=== PATIENT | female | born 1990 | race Caucasian/White ===

== ENCOUNTER → 2017-10-08 11:12 | Outpatient (CLI) | payer BC, SELFPAY ==
[2016-10-24 13:30] VITALS: BP 140/79
[2017-10-08 10:38] VITALS: BP 126/87; BMI 21.8
[2017-10-08 13:14] LABS: hCG Titer Quant., Serum 649 mIU/mL (<9 non-preg)
== END ==
PROVIDERS: Family Provider Family Medicine; PCP Family Medicine; Visit Provider Obstetrics & Gynecology
DX: O20.0 Threatened abortion (principal); Z3A.00 Weeks of gestation of pregnancy not specified
CPT/HCPCS: 36415; 84702

== ENCOUNTER → 2017-10-10 08:15 | Outpatient (CLI) | payer BC, SELFPAY ==
[2016-10-24 13:30] VITALS: BP 140/79
[2017-10-08 10:38] VITALS: BP 126/87; BMI 21.8
[2017-10-10 10:13] LABS: hCG Titer Quant., Serum 134 mIU/mL (<9 non-preg)
== END ==
PROVIDERS: Nurse Practitioner Women's Health; Family Provider Family Medicine; PCP Family Medicine; Visit Provider Obstetrics & Gynecology
DX: O20.0 Threatened abortion (principal); Z3A.00 Weeks of gestation of pregnancy not specified
CPT/HCPCS: 36415; 84702

== ENCOUNTER → 2018-01-28 18:56 | Outpatient (CLI) | payer SELFPAY | PROVIDERS: Visit Provider Physician Assistant Surgical | DX: J02.9 Acute pharyngitis, unspecified (principal) | CPT/HCPCS: 87081 ==

== ENCOUNTER → 2018-08-19 13:52 | Outpatient (CLI) | payer OTHER, SELFPAY ==
[2018-08-19 08:06] VITALS: BMI 22.6
[2018-08-19 14:49] LABS: Mucous, Urine 0 SEEN /hpf (<or=2+)
[2018-08-19 14:51] LABS: Color, Urine Yellow (Yellow); Glucose, Dipstick Normal (Normal); Ketone-Dipstick Negative (Negative); Leukocyte Esterase-Dipstick 500 /ul (Negative); Nitrite-Dipstick Positive (Negative); Occult Blood-Urine 50 /ul (Negative); Protein-Dipstick Negative (Negative); Urine Bilirubin Dipstick Negative (Negative); Urine Clarity Cloudy (Clear); Urine Urobilinogen Normal (Normal)
[2018-08-19 14:57] LABS: Bacteria 3+ /hpf (None Seen); Red Blood Cells-Urine 0-5 SEEN /hpf (0-5); Squamous Epithelial Cells - UA 5-10 SEEN /hpf (5-10); White Blood Cells 25-50 SEEN /hpf (0-5)
--- OUTSIDE RECORDS SUMMARY | 2018-11-21 01:57 | XMS RPT_ITS ---
:1990 Author Organization OHIP Support Name Relationship Address Phone [employer] Unavailable [address] + [place] [address] SWANSON, PAT Unavailable [address] + [place] [address] [employer] Unavailable [address] + [place] [address] SWANSON, PAT Unavailable [address] + [place] [address] [employer] Unavailable [address] + [place] [address] SWANSON, PAT Unavailable [address] + [place] [address] [employer] Unavailable [address] + [place] [address] SWANSON, PAT Unavailable [address] + [place] [address] [employer] Unavailable [address] + [place] [address] SWANSON, PAT Unavailable [address] + [place] [address] [employer] Unavailable [address] + [place] [address] SWANSON, PAT Unavailable [address] + [place] [address] [employer] Unavailable [address] + [place] [address] SWANSON, PAT Unavailable [address] + [place] [address] [employer] Unavailable [address] + [place] [address] SWANSON, PAT Unavailable [address] + [place] [address] Care Team Providers Name Role Phone Kyle Evans Attending Unavailable Ranney, Christopher Referring Unavailable Nathan, Kyle Attending Unavailable Nathan, Kyle Referring Unavailable Marcanthony, Britany Attending Unavailable Ranney, Christopher Referring Unavailable Marcanthony, Britany Attending Unavailable Ranney, Christopher Primary Care Unavailable Marcanthony, Britany Attending Unavailable Ranney, Christopher Primary Care Unavailable Marcanthony, Britany Attending Unavailable Ranney, Christopher Referring Unavailable Nathan, Kyle Attending Unavailable Ranney, Christopher Referring Unavailable Ranney, Christopher Primary Care Unavailable Nathan, Kyle Attending Unavailable Ranney, Christopher Primary Care Unavailable Nathan, Kyle Referring Unavailable PROBLEMS PROBLEMS DATE TYPE CONDITION / CODE ATTENDING STATUS SOURCE 09/05/2018 Unknown R30.0 - Dysuria / Kyle Evans Active [place] R30.0(ICD-10) [facility] Hospital Repository 09/05/2018 Unknown N30.00 - Acute Kyle Evans Active [place] cystitis without Community hematuria / Hospital N30.00(ICD-10) Repository 01/29/2018 Unknown J02.9 - Acute Kyle Evans Active [place] pharyngitis, [facility] unspecified / Hospital J02.9(ICD-10) Repository 10/11/2017 Unknown O20.0 - Marcanthony, Active [place] Threatened Britany [facility] / Hospital O20.0(ICD-10) Repository PROCEDURES PROCEDURES No Procedure Records FoundRESULTS RESULTS URGENT CARE VISIT Observed: 09/10/2018 Status: F Source: [place] REPORT 7:06 AM [facility] REPOSITORY [facility] [address] [place] [address] [address] [place] [address] OFFICE VISIT Date of Service: 08/19/18 MR#: [id number] Acct: [id number] Name: GRIFFIN SWANSON Rep #: [id number] : 1990 Provider: Kyle PEREZ Age/Sex: 27/F Location: [facility] Status: Signed with Addenda ADDENDUM by Rene PEREZ on 09/10/18 at 0706 Addendum entered and electronically signed by CHRIS Moreno 09/10/18 07:06: Pt noted improved UTI symptoms while on macrobid, therefore stopped taking/ did not complete prescription as prescribed, therefore symptoms returned. Patient informed by nursing that she is restart/ complete previous macrobid prescription - as well as add'l macrobid 100mg bid #14 prescribed which she is to start/ complete thereafter - then f/u w/ pcp should symptoms persist/ worsen. HPI Details: GRIFFIN SWANSON, is a 27 F who presents to the office today for Assessment AND Plan 1. 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 Accompanied by: SELF Is patient in pain?: No Allergies No Known Allergies Allergy (Verified 08/19/18 08:06) Medications ibuprofen 100 mg tablet 200 mg PO TID-QID PRN 01/28/18 [History Confirmed 01/28/18] nitrofurantoin monohydrate/macrocrystals 100 mg capsule 1 cap PO Q12H 7 Days #14 cap 08/19/18 [Rx Confirmed 08/19/18] phenazopyridine 100 mg tablet 200 mg PO TID PRN 0 Days #14 tab 08/19/18 [Rx Confirmed 08/19/18] PFSH Surgical History delivery delivered (Acute) Family History Grandmother Cancer Hypertension Grandfather Diabetes Hypertension Social History Smoking Status: Never smoker alcohol intake: never substance use type: does not use caffeine: Yes what type of physical activity do you participate in: none seatbelt use: always do you feel safe at home: Yes additional social history: Gordon- Patient works at [employer] HPI HPI Chief Complaint: DYSURIA Details: GRIFFIN SWANSON, is a 27 F who presents to the office today for complaint of dysuria for the past 5 days. Patient states that she does have a history of frequent UTIs in the past however has not had one in the past 2 years. Patient reports that the dysuria is particularly painful in the morning after not drinking much overnight and then seems to improve with aggressive hydration during the day. She denies any hematuria or pelvic pain. She has had no fever, chills, sweats. No nausea, vomiting, diarrhea. No other associated symptoms or alleviating/aggravating factors. ROS Const Constitutional: No body ache, chills or fever(s) Resp Respiratory: No shortness of breath Cardio Cardiology: No lightheadedness, palpitations or irregular heart rhythm Gastro GI: No abdominal pain Genitourinary-Female: Positive for burning urination, painful urination and urinary frequency; no pelvic pain, painful intercourse or blood in urine Neuro Neurology: No confusion or behavioral changes Psych Psychiatric: No confusion, No behavioral changes Exam Const General: cooperative, healthy appearing Resp Effort AND Inspection: normal respiratory effort Auscultation: Bilateral: Clear to Auscultation Cardio Rate: regular rate Rhythm: regular rhythm GI Auscultation: normal bowel sounds General: No CVA tenderness Psych Appearance: grossly normal Mental Status: mental status grossly normal Results [facility] Office Urine Color Dk Yellow Last Edit by Odilia Tong on 08/19/18 08:09 Assessment AND Plan 1. Acute cystitis without hematuria N30.00 Status Acute Plan Macrobid and Pyridium as prescribed today. Encouraged to get plenty of rest, drink lots of clear liquids, and use Tylenol or Ibuprofen (unless contraindicated) for fever and comfort. Patient also educated on other symptomatic management techniques. To be seen in 7-10 days if no improvement; sooner if worsening of symptoms. Patient advised of potential red flags and when appropriate to report to the ED. Patient verbalized understanding and agreement with all the above. Plan Detail Other Orders Orders: Other Medications New: nitrofurantoin monohyd/m-cryst 100 mg administer with1 cap PO Q12H 7 days 14 caps 0RF a meal/food; swallow whole; do not open, crush, dissolv e , or chew Discontinued: azithromycin Discontinued Reason: Pt no ltake 500 mg today (day 1), then 250 mg for 4 onger taking days (days 2- 5) PO 6 tabs 0RF Coding Level of Care Code Off vis,est,level 3 Diagnoses Acute cystitis without hematuria N30.00 Urinary tract infection type: acute cystitis Hematuria presence: without hematuria 08/19/18 0809 <Electronically signed by Kyle PEREZ> Date Kyle PEREZ Cosigner Signature: Date (if applicable) CC: URINALYSIS, COMPLETE Collected: 08/19/2018 Status: F Source: [place] 8:00 AM [facility] REPOSITORY Order Comment: How was Urine Obtained? CLEAN CATCH TYPE CODE TESTS RESULT OUT OF RANGE REFERENCE UNITS LAB L400.3000 Yellow COLOR Normal Yellow LAB L400.3050 Clear Normal CLARITY Cloudy LAB L400.3200 Normal mg/dl Normal GLUCOSE, UR Normal LAB L400.3300 Negative mg/dL Normal BILIRUBIN URINE Negative LAB L400.3400 Negative mg/dl Normal KETONE UR Negative LAB L400.3465 1.002-1.030 Normal SP.GR. DIPSTX 1.020 LAB L400.3550 5.0 - 8.0 pH UR Normal 6.0 LAB L400.3600 Negative mg/dl PROT Normal DIPSTX Negative LAB L400.3700 Normal mg/dl Normal UROBILI Normal LAB L400.3750 Negative High NITRITE UR Positive LAB L400.3780 Negative /ul High 50 OCCULT BLOOD-UR LAB L400.3800 Negative /ul High LEUK ESTERASE 500 LAB L400.4050 0-5 /hpf WBC Normal 25-50 SEEN LAB L400.4100 0-5 /hpf Normal RBC-UA 0-5 SEEN LAB L400.4150 5-10 /hpf SQUAM Normal EPI 5-10 SEEN LAB L400.4300 None Seen /hpf 3+ Normal BACTERIA LAB L400.4350 <or=2+ /hpf 0 Normal MUCUS, URINE SEEN Performed By: #### L400.0001 #### [facility] [address] [place], [address] Observed: 08/19/2018 Status: F Source: [place] CULTURE, URINE 8:00 AM [facility] REPOSITORY Urine Culture ORGANISM 1: Presumptive E. coli [place] Count >100,000 Presumptive E. coli: REACTION Amoxacillin/Clavulanic Acid $ 4 S Ampicillin $ >=32 R Ampicillin/Sulbactam $ 16 I Cefazolin $ <=4 S Cefepime $ <=1 S Ceftriaxone $ <=1 S Ciprofloxacin $ <=0.25 S ESBL - Ertapenim $$$ <=0.5 S Gentamicin $ <=1 S Imipenem *NF <=0.25 S Levofloxacin $ <=0.12 S Nitrofurantoin $ <=16 S Piperacillin/Tazobactam $$ <=4 S Tobramycin $ <=1 S Trimethoprim/Sulfametho $ >=320 R (NF) indicates non-formulary drug at [facility]. Approval by Infectious Disease Specialist required before non-formulary drugs may be ordered and/or dispensed. Performed By: #### M100.0650 #### [facility] [address] [place], [address] Observed: 01/28/2018 Status: F Source: [place] CULTURE, R/O STREP A 6:58 PM [facility] REPOSITORY JUDD Culture No Group A Beta Streptococcus isolated. * This cultures intended use is to screen for Beta Streptococcus A only. All other pathogens and potential pathogens will not be screened for or reported. If a complete workup of all potential pathogens is indicated an order for a routine throat culture is required. Performed By: #### M100.010 #### [facility] [address] [place], [address] URGENT CARE VISIT Observed: 01/28/2018 Status: F Source: [place] REPORT 8:40 AM [facility] REPOSITORY [address] [place] [address] OFFICE VISIT Date of Service: 01/28/18 MR#: [id number] Acct: [id number] Name: GRIFFIN SWANSON Rep #: [id number] : 1990 Provider: Kyle PEREZ Age/Sex: 27/F Location: [facility] Status: Signed Intake Vital Signs01/28/18 Height 5 ft 5 in 01/28/18 Weight: 136 lb 01/28/18 Body Mass Index (BMI) 22.6 01/28/18 Blood Pressure 108/72 Intake Visit Reasons: SORE THROAT, GLANDS SWOLLEN Allergies No Known Allergies Allergy (Verified 01/28/18 08:06) Medications azithromycin 250 mg tablet See Label Instructions PO .COMPLEX #6 tab 01/28/18 [Rx Confirmed 01/28/18] ibuprofen 100 mg tablet 200 mg PO TID-QID PRN 01/28/18 [History Confirmed 01/28/18] PFSH Surgical History delivery delivered (Acute) Family History Grandmother Cancer Hypertension Grandfather Diabetes Hypertension Social History Smoking Status: Never smoker alcohol intake: never substance use type: does not use caffeine: Yes what type of physical activity do you participate in: none seatbelt use: always do you feel safe at home: Yes additional social history: Gordon- Patient works at [employer] HPI HPI Details: GRIFFIN SWANSON, is a 27 F who presents to the office today for sore throat, swollen lymph nodes and white spots around her tonsils for the past 3 days. She states that the issue has worsened during this time despite the use of ibuprofen for the pain. She denies fever, chills, sweats. No nausea, vomiting, diarrhea. No other associated symptoms or alleviating/aggravating factors ROS Const Constitutional: No fever(s), anorexia, chills, headache(s) or abnormal sleep pattern ENT ENT: Positive for post nasal drip, sore throat, nasal congestion and nasal discharge; no ear pain or headache(s) Resp Respiratory: No shortness of breath Cardio Cardiology: No irregular heart rhythm or palpitations Gastro GI: No nausea/dyspepsia Neuro Neurology: No headache(s) or behavioral changes Psych Psychiatric: No behavioral changes, No abnormal sleep pattern Exam Const General: cooperative, healthy appearing HENSC Head: normal to inspection Ears: hearing grossly normal bilaterally, TM's normal bilaterally, EAC's normal Nose: external nose normal, nasal discharge clear Mouth: oral mucosae normal Throat: abnormal tonsil bilaterally Resp Effort AND Inspection: normal respiratory effort Auscultation: Bilateral: Clear to Auscultation Cardio Palpation: normal PMI Rate: regular rate Rhythm: regular rhythm Neuro General: CN's II-XI intact bilaterally, alert Psych Appearance: grossly normal Mental Status: mental status grossly normal Results BMS[facility]APID[facility]RE[facility] Office Rapid Strep A Negative Last Edit by Odilia Tong on 01/28/18 08:21 Assessment AND Plan Problems 1. Acute pharyngitis, unspecified etiology J02.9 Status Acute Plan Azithromycin as prescribed today. Encouraged to get plenty of rest, drink lots of clear liquids, and use Tylenol or Ibuprofen (unless contraindicated) for fever and comfort. Patient also educated on other symptomatic management techniques. To be seen in 7-10 days if no improvement; sooner if worsening of symptoms. Patient advised of potential red flags when appropriate report to the ED. Patient verbalized understanding of all the above. This note was generated with [employer] dictation software. It may contain incorrect words, spelling, and punctuation that were not noted in checking the note before signing. Orders Orders: Medications New: azithromycin take 500 mg today (day 1), then 250 mg for 4 days (days 2-5) CHRIS Self O Discontinued: oxycodone Discontinued Reason: Pt 5 - 10 mg PO Q4H PRN PRN Mod-Severe P Odilia Tong no longer taking ain (-06/11) docusate sodium Discontinued [id number] mg PO BID PRN Constipation Odilia Tong : Pt no longer taking Coding Level of Care Code Off vis,est,level 3 Diagnoses Acute pharyngitis, unspecified etiology J02.9 Pharyngitis/tonsillitis etiology: unspecified etiology 01/28/18 0840 <Electronically signed by Kyle PEREZ> Date Kyle PEREZ Cosigner Signature: Date (if applicable) CC: HCG TITER QUANT., Collected: 10/10/2017 Status: F Source: [place] 8:18 AM [facility] REPOSITORY TYPE CODE TESTS RESULT OUT OF RANGE REFERENCE UNITS LAB L700.8000 <9 non-preg mIU/mL High HCG 134 QUANT. Performed By: #### L700.8000 #### [facility] [address] 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: No Is patient in pain?: No Allergies No Known Allergies Allergy (Verified 10/08/17 10:38) Medications Docusate Sodium [Colace] 100 mg PO BID PRN #30 cap 10/22/16 [Rx] Naproxen [Naprosyn] 250 - 500 mg PO TID PRN #30 tab 10/22/16 [Rx] Oxycodone [Oxyir] 5 - 10 mg PO Q4H PRN PRN #30 tab 10/22/16 [Rx] Vits [Prenatabs FA ] 1 tab PO DAILY 10/22/16 [History Confirmed 10/08/17] Is last menstrual period known: Yes Last Menstral Period: 08/19/17 Post menopausal: No Patient : Yes : No PFSH Surgical History delivery delivered (Acute) Family History Grandmother Cancer Hypertension Grandfather Diabetes Hypertension Social History Smoking Status: Never smoker alcohol intake: never substance use type: does not use caffeine: Yes what type of physical activity do you participate in: none seatbelt use: always do you feel safe at home: Yes additional social history: Gordon- Patient works at [employer] HPI Early OB Bleeding: Details: GRIFFIN SWANSON is a 26 year old who presents for bleeding in early , first joselyn twas positive two weeks ago but bleeding started and is getting heavier. she co mild cramping. Female Reproductive History Last Menstral Period: 08/19/17 Questions: Metorrhagia: No, Sexually active: Yes Pregancy History 2 Elective abortions Hx Para 1 Spontaneous abortions Past Pregnancies Del. DatName [place]/WeeksOutcome Route [facility] LgAnesthesDel LocaProviderFOB e ht en ia tn Unknown 2016 Mimi live birC-sectio Benekos th - fuln l term ROS Const Constitutional: Denies poor appetite, headache(s), fever(s), increased appetite, weight gain, weight loss or fatigue : Reports as per HPI; denies urinary urgency, vaginal discharge, urinary frequency, vaginal itching, vaginal odor, vaginal dryness, urinary incontinence, urinary hesitancy, difficulty urinating or painful urination Exam Const General: cooperative, healthy appearing, comfortable, no acute distress, well developed Nutritional Appearance: average body habitus Orientation: alert General: bladder normal to palpation External Female Exam: normal external appearance, normal appearance of the urethra Urethra: normal appearance of the urethra, normal palpation Speculum Exam - Vagina: normal appearance of the vagina, vaginal bleeding Speculum Exam - Cervix: normal appearance of the cervix, nontender Bimanual Exam- Vagina AND Uterus: bladder normal to palpation, No cervical tenderness, normal bimanual exam, uterine size normal, uterine shape normal, uterine mobility normal, uterine consistency normal, normal cervical palpation, uterus non-tender Bimanual Exam- Adnexa, other: normal adnexae, adnexae mobile, no adnexal masses, pelvic support normal Pelvic Support: normal OB/External AND Speculum: vaginal bleeding Speculum Exam: vaginal bleeding Assessment AND Plan Problems 1. Threatened O20.0 check serial hcgs Plan recommend checking serial hcgs. rh positive. discussed possible early miscarriage. Orders Orders: Coding Level of Care Code Off vis,new,level 3 Diagnoses Threatened O20.0 10/09/17 0619 <Electronically signed by Britany Butts MD> Date Britany Butts MD Cosigner Signature: Date (if applicable) CC: HCG TITER QUANT., Collected: 10/08/2017 Status: F Source: [place] SER[place] 11:20 AM [facility] REPOSITORY Order Comment: Comments: draw now and repeat in 48 hours Comments: draw now and repeat in 48 hours TYPE CODE TESTS RESULT OUT OF RANGE REFERENCE UNITS LAB L700.8000 <9 non-preg mIU/mL High HCG 649 QUANT. Performed By: #### L700.8000 #### [facility] [address] [place], [address] ALLERGIES ALLERGIES DATE TYPE / CODE NAME / CODE REACTION SEVERITY SOURCE 08/19/2018 Drug No Known Unknown [facility] Allergy/4160 Allergies/F00 [facility] 10667(SNOMED 5689867(RXNOR Repository CT) M) ENCOUNTERS ENCOUNTERS ADMIT/DISCHARGE ACCOUNT ADMITTING ENCOUNTER LOCATION SOURCE NUMBER CLASS 08/19/2018 [id number] Ambulatory [place] 1 [facility] ing:LABSPEC Repository 08/19/2018/ [id number] Ambulatory BMS[facility]:B [place] 8 4 [facility] Repository 01/28/2018 [id number] [facility] ing:LABSPEC Repository 01/28/2018/ [id number] Ambulatory BMSBuilding:B [place] 8 5 [facility] Repository 10/14/2017 [id number] Ambulatory BMSBuilding:B [place] 1 [facility] Repository 10/10/2017 [id number] Ambulatory [place] 2 [facility] ing:LAB Repository 10/08/2017 [id number] Ambulatory [place] 4 [facility] ing:POLAB3 Repository 10/08/2017/ [id number] Ambulatory BMSBuilding:B [place] 8 7 [place] Repository PAYERS PAYERS ENCOUNTER GUARANTOR PAYER SUBSCRIBER SOURCE 08/19/2018 GRIFFIN E Primary GRIFFIN E [place] [address] Insurance:COMMERCIAL JONESDOB: [facility] [place]: [id number] [id number] Repository [address]Vbq: (330) Date:0437-78-89[phone] () [address] [place], [place] [address]MARGARET CONNOR [address]EB: 08/19/2018 Secondary NOT GIVENUNK [place] Insurance:SELF PAY [facility] Hospital Number: Effective Repository Date:2018-08-19 08/19/2018 GRIFFIN E Primary GRIFFIN E [place] [address] Insurance:ALLIED JONESDOB: [facility] [id number] [facility] Repository [address]Wxs: (330) Number: [phone] [id number] Date:8948-25-[address] [address]EH: 08/19/2018 Secondary NOT GIVENUNK [place] Insurance:SELF PAY [facility] Number: Effective Repository Date:2018-08-19 01/28/2018 GRIFFIN SWANSON265 Primary Insurance:SELF NOT GIVENUNK [place] [address] PAY [place] Number: Effective Hospital [address]Bmn: Date:2018-01-28 Repository [phone] (HP) 01/28/2018 GRIFFIN SWANSON265 Primary Insurance:SELF NOT GIVENUNK [place] [address] PA[place] Number: Effective Hospital [address]Gbi: Date:2018-01-28 Repository [phone] 0-3 (HP) 10/14/2017 Griffin Guaman Primary Griffin JonesDOB: [place] [address] Insurance:ANTHEMPolicy [id number] [place] Number: [facility] [address]Srp: [id number] Repository [phone] Date:2469-29-97FB [address] () [id number], [place] [address]EO: 10/14/2017 Secondary NOT GIVENUNK [place] Insurance:SELF PAY [facility] Number: Effective Repository Date:2017-09-25 10/10/2017 Griffin Guaman Primary Gordon Spencer [place] [address] Insurance:ANTHEMPolicy [facility] [place] Number: [facility] [address]Njx: [id number] Repository [phone] Date:8369-60-93VX [address] () [id number], [place] [address]TH: 10/10/2017 Secondary NOT GIVENUNK [place] Insurance:SELF PAY [facility] Number: Effective Repository Date:2017-10-10 10/08/2017 Griffin Guaman Primary Gordon Spencer [place] [address] Insurance:ANTHEMPolicy [facility] [place] [place] Number: Hospital [address]Tqo: [id number] Repository [phone] Date:[id number] [address] () [id number], [place] [address]FJ: 10/08/2017 Secondary NOT GIVENUNK [place] Insurance:SELF PAY [facility] Number: Effective Repository Date:2017-10-08 10/08/2017 Griffin Swanson265 Primary Griffin SwansonDOB: [place] [address] Insurance:ANTHEMPolicy [id number] [place] Number: Hospital [address]Aze: [id number] Repository [phone] Date:5145-28-48KI [address] () [id number], [place] [address]JL: 10/08/2017 Secondary NOT GIVENUNK [place] Insurance:SELF PAY [facility] Number: Effective Repository Date:2017-10-08
== END ==
PROVIDERS: Referring Provider Physician Assistant Surgical; Visit Provider Physician Assistant Surgical
DX: R30.0 Dysuria (principal)
CPT/HCPCS: 81001; 87086; 87088; 87186

== ENCOUNTER → 2018-11-05 09:17 | Outpatient (CLI) | payer BC, SELFPAY ==
[2018-11-05 09:05] VITALS: BMI 22.6
[2018-11-05 09:44] LABS: Absolute Lymphocyte Count 2.37 X10^3/ul (0.83-4.51); Absolute Neutrophil Count 5.5 X10^3/uL (2.0-7.7); Basophil# 0.02 X10^3/uL; Basophil% 0.2 % (0-1); Eosinophils% 1.2 % (0-5); Hematocrit 41.8 % (37-47); Lymphocyte # 2.37 X10^3/ul (4.0); Lymphocyte % 27.5 % (19-41); Mean Corp Hgb Conc 33.5 g/gl (32-36); Mean Corpuscular Hgb 29.4 pg (27.0-32.0); Mean Corpuscular Volume 87.8 fL (81-99); Mean Platelet Vol. 8.9 fl (6.2-12.0); Monocyte# 0.58 X10^3/uL; Monocyte% 6.7 % (0-10); Neutrophil # 5.53 X10^3/uL (2.7-7.7); Neutrophil % 64.1 % (47-70); POSITIVE COUNT NO; POSITIVE DIFFERENTIAL NO; POSITIVE MORPHOLOGY NO; Platelet Count 207 K/mm3 (150-450); RBC Distribution Width CV 12.3 % (11.6-14.6); RBC Distribution Width SD 39.4 fl (35.1-43.9); Red Blood Count 4.76 M/mm3 (4.2-5.4); White Blood Count 8.6 K/mm3 (4.4-11.0)
[2018-11-05 11:23] LABS: HIV - WCH Non-Reactive (Nonreactive); Rubella IgG 50.9 IU/mL
[2018-11-05 18:52] LABS: Chlamydia Trachomatis by PCR Negative (Negative); Neisserai gonorrhoeae by PCR Negative (Negative); Probe Check PASS; Sample Adequacy Control PASS; Specimen Processing Control PASS
[2018-11-06 10:58] LABS: HEPATITIS B SURFACE AG Negative (Negative)
[2018-11-07 01:31] LABS: Rapid Plasmin Reagin (RPR) NONREACTIVE (NONREACTIVE)
[2018-11-10 12:18] LABS: HPV Reflexed? NOT INDICATED
== END ==
PROVIDERS: Family Provider Family Medicine; PCP Family Medicine; Referring Provider Obstetrics & Gynecology; Visit Provider Obstetrics & Gynecology
DX: Z34.90 Encounter for supervision of normal pregnancy, unspecified, unspecified trimester (principal); Z12.4 Encounter for screening for malignant neoplasm of cervix
CPT/HCPCS: 36415; 85025; 86592; 86703; 86762; 86850; 86900; 87086; 87088; 87340; 87491; 87591; 87624; 88175; G0145

== ENCOUNTER → 2019-02-25 07:44 | Outpatient (CLI) | payer BC, SELFPAY ==
[2019-01-30 16:43] VITALS: BMI 22.6
--- NOTE | 2019-02-25 07:46 | US_ITS ---
HISTORY: growth ADDITIONAL HISTORY: Two-vessel cord COMPARISON: None TECHNIQUE: Limited obstetric sonography performed with transabdominal approach, grayscale and color Doppler imaging. FINDINGS: NUMBER: 1 HEART RATE: BPM PRESENTATION: Cephalic PLACENTA: Posterior. CERVIX: Unremarkable, 3.7 cm AMNIOTIC FLUID: Normal with PEDRO 14.4 cm and maximum vertical pocket 6.6 cm. BIOMETRY: BPD: 7.3 cm, 29 weeks 3 days HC: 26.2 cm, 29 weeks 1 day AC:25.4 cm 25.4, 29 weeks 5 days FL: 5.7 cm, 29 weeks 6 days AUA: 29 weeks 4 days SILVANA: 05/09/2019 EFW: 1426 g, 86th percentile Anatomy Limited visualized anatomy appears unremarkable, dedicated evaluation not performed at this time. US/OB Limited With Biometrics IMPRESSION: Single, live intrauterine gestation, as detailed. at 0629 Reported and signed by: Cecilia Munoz MD Electronically Signed: Cecilia Munoz MD at 6:28 EDT Tel , Service support ,
== END ==
PROVIDERS: Family Provider Family Medicine; PCP Family Medicine; Referring Provider Obstetrics & Gynecology; Visit Provider Obstetrics & Gynecology
DX: O09.899 Supervision of other high risk pregnancies, unspecified trimester (principal); O44.42 Low lying placenta NOS or without hemorrhage, second trimester; Z3A.29 29 weeks gestation of pregnancy
CPT/HCPCS: 76816

== ENCOUNTER → 2019-02-27 15:24 | Outpatient (CLI) | payer BC, SELFPAY ==
[2019-02-27 15:07] VITALS: BMI 22.6
[2019-02-27 16:13] LABS: Absolute Lymphocyte Count 2.35 X10^3/ul (0.83-4.51); Absolute Neutrophil Count 8.9 X10^3/uL (2.0-7.7); Basophil# 0.03 X10^3/uL; Basophil% 0.2 % (0-1); Eosinophil# 0.07 X10^3/uL; Eosinophils% 0.6 % (0-5); Hematocrit 33.8 % (37-47); Hemoglobin 11.3 g/dl (12.0-15.0); Lymphocyte # 2.35 X10^3/ul (4.0); Lymphocyte % 18.8 % (19-41); Mean Corp Hgb Conc 33.4 g/gl (32-36); Mean Corpuscular Hgb 29.8 pg (27.0-32.0); Mean Corpuscular Volume 89.2 fL (81-99); Mean Platelet Vol. 8.9 fl (6.2-12.0); Monocyte# 0.96 X10^3/uL; Monocyte% 7.7 % (0-10); Neutrophil # 8.89 X10^3/uL (2.7-7.7); Neutrophil % 70.9 % (47-70); Platelet Count 224 K/mm3 (150-450); RBC Distribution Width CV 12.9 % (11.6-14.6); RBC Distribution Width SD 41.3 fl (35.1-43.9); Red Blood Count 3.79 M/mm3 (4.2-5.4); White Blood Count 12.5 K/mm3 (4.4-11.0)
[2019-02-27 16:20] LABS: POSITIVE COUNT NO; POSITIVE DIFFERENTIAL NO; POSITIVE MORPHOLOGY NO
[2019-02-27 16:31] LABS: Glucose Challenge Gest 1H 50g 98 mg/dL (70-140)
== END ==
PROVIDERS: Family Provider Family Medicine; PCP Family Medicine; Referring Provider Nurse Practitioner Women's Health; Visit Provider Nurse Practitioner Women's Health
DX: Z34.80 Encounter for supervision of other normal pregnancy, unspecified trimester (principal)
CPT/HCPCS: 36415; 82950; 85025

== ENCOUNTER → 2019-04-02 07:47 | Outpatient (CLI) | payer BC, SELFPAY ==
[2019-03-24 08:05] VITALS: BMI 22.6
[2019-03-31 08:38] VITALS: BMI 22.6
--- NOTE | 2019-04-02 08:07 | US_ITS ---
STUDY: SECOND AND THIRD TRIMESTER OBSTETRICAL ULTRASOUND REASON FOR EXAM: Female, 28 years old. well being. LMP: 02/25/2019 TECHNIQUE: Transabdominal and Transvaginal TECHNICAL QUALITY: Adequate. PRIOR ULTRASOUND: 02/25/2019. FINDINGS: There is a single intrauterine fetus. The fetus is in a cephalic presentation. There is demonstrated cardiac activity with a heart rate of 143 bpm. There is a normal amniotic fluid volume. The largest amniotic fluid pocket measures 6.4 cm. The amniotic fluid index (PEDRO) is 15 cm. The placenta is posterior in location and is not low lying. There are Grade 2 placental changes. The cervix measures 3.8 in length. The bilateral adnexal regions are normal. BIOMETRY: BPD: 8.7: 35 weeks, 0 days HC: 31.2: 35 weeks, 0 days AC: 31.5: 35 weeks, 4 days FL: 6.9: 35 weeks, 3 days CI: FL/BPD: FL/HC: FL/AC: HC/AC: age by current US: 35 weeks, 2 days. SILVANA by current US: 05/05/2019. Estimated weight: 2653 grams, +/- 387 grams, 92 %. age by prior US: 34 weeks, 2 days. SILVANA by prior US: 05/09/2019. Age by LMP: 33 weeks, 3 days. SILVANA by LMP: 05/18/2019. US/OB Limited With Biometrics IMPRESSION: Single live fetus in a vertex presentation. survey not performed on this exam. Again noted is a two-vessel umbilical cord. Placenta is grade 2 and is not low-lying. Cervix is closed. age by current US: 35 weeks, 2 days. SILVANA by current US: 05/05/2019. Estimated weight: 2653 grams, +/- 387 grams, 92 %. Electronically Signed: Jere Aguilar MD at 17:20 EDT , Service support ,
== END ==
PROVIDERS: Family Provider Family Medicine; PCP Family Medicine; Referring Provider Obstetrics & Gynecology; Visit Provider Obstetrics & Gynecology
DX: O09.893 Supervision of other high risk pregnancies, third trimester (principal); Z3A.35 35 weeks gestation of pregnancy
CPT/HCPCS: 76816

== ENCOUNTER → 2019-04-21 16:30 | Outpatient (CLI) | payer BC, SELFPAY ==
[2019-04-21 08:22] VITALS: BMI 22.6
== END ==
PROVIDERS: Family Provider Family Medicine; PCP Family Medicine; Referring Provider Obstetrics & Gynecology; Visit Provider Obstetrics & Gynecology
DX: Z34.93 Encounter for supervision of normal pregnancy, unspecified, third trimester (principal)
CPT/HCPCS: 87081

== ENCOUNTER → 2019-04-30 07:59 | Outpatient (CLI) | payer BC, SELFPAY ==
[2019-03-24 08:05] VITALS: BMI 22.6
[2019-04-28 08:03] VITALS: BMI 22.6
--- NOTE | 2019-04-30 08:07 | US_ITS ---
STUDY: SECOND AND THIRD TRIMESTER OBSTETRICAL ULTRASOUND REASON FOR EXAM: Female, 28 years old. growth LMP: TECHNIQUE: Transabdominal TECHNICAL QUALITY: Adequate. PRIOR ULTRASOUND: April 02, 2019 FINDINGS: There is a single intrauterine fetus. The fetus is in a cephalic presentation. There is demonstrated cardiac activity with a heart rate of 136 bpm. There is a normal amniotic fluid volume. The largest amniotic fluid pocket measures 5.2 cm. The amniotic fluid index (PEDRO) is 16.9 cm. The placenta is posterior There are Grade 2 placental changes. The cervix is not visualized nor are the adnexa BIOMETRY: BPD: 9.6 cm: 39 weeks, 2 days HC: 34.2 cm: 39 weeks, 4 days AC: 85.3 cm: 39 weeks, 2 days FL: 7.7 cm: 39 weeks, 2 days CI: 0.84 FL/BPD: 0.8 FL/HC: FL/AC: 0.22 HC/AC: 0.97 age by current US: 39 weeks, 3 days. SILVANA by current US: May 04, 2019 . Estimated weight: 3724 grams, +/- 544 grams, 94 %. age by prior US: 39 weeks, 2 days. SILVANA by prior US: May 05, 2019. Age by LMP: 37 weeks, 3 days. SILVANA by LMP: May 18, 2019. ANATOMY: Not studied at this time US/OB Limited With Biometrics IMPRESSION: Viable intrauterine gestation approximately 39-40 weeks gestational age. Electronically Signed: Tariq Chu MD at 16:50 EDT , Service support ,
== END ==
PROVIDERS: Family Provider Family Medicine; PCP Family Medicine; Referring Provider Obstetrics & Gynecology; Visit Provider Obstetrics & Gynecology
DX: O09.90 Supervision of high risk pregnancy, unspecified, unspecified trimester (principal)
CPT/HCPCS: 76816

== ENCOUNTER 2019-05-14 08:50 | Outpatient (CLI) | payer BC, SELFPAY ==
[2019-05-12 08:06] VITALS: BMI 22.6
[2019-05-14 09:12] VITALS: BMI 28.3
--- NOTE | 2019-05-24 00:02 | OB.TRI.PN_ITS ---
Progress Notes Date of Service: 05/14/19 Progress Note: Patient presented for contractions. No significant cervical change. Reassuring status FHT: 130 Moderate variability reactive no decelerations category I tracing [place]: Irregular contractions Assessment and plan false labor DC home labor precautions planning if spontaneous labor otherwise repeat low transverse reactive nst Multi Select Codes - Urinary/Genital Urinary/Genital CPT Codes: 62651-43 non-stress test Interp
== END 2019-05-14 10:05 | disposition home or self-care (01) ==
LOC: WPOUT 08:53 → WP 08:53
PROVIDERS: Family Provider Family Medicine; PCP Family Medicine; Referring Provider Obstetrics & Gynecology; Visit Provider Obstetrics & Gynecology
DX: O47.9 False labor, unspecified (principal); O34.211 Maternal care for low transverse scar from previous cesarean delivery; Z3A.00 Weeks of gestation of pregnancy not specified
CPT/HCPCS: 59025; 59050; 99218; G0378

== ENCOUNTER 2019-05-15 10:00 | Inpatient (IN) | payer BC, SELFPAY ==
[2019-05-05 08:28] VITALS: BMI 22.6
[2019-05-14 09:12] VITALS: BMI 28.3
[2019-05-15] VITALS (19 sets, daily range): BP systolic 105–131; BP diastolic 49–77; PULSE 82–107; RESP 16–18; TEMP 36–36.7; O2SAT 95–99; BMI 28.1
[2019-05-15] MEDS: Lactated Ringers 1,000 ML 999 ML IV (10:10)
[2019-05-15 10:40] LABS: Absolute Neutrophil Count 9.3 X10^3/uL (2.0-7.7); Basophil# 0.07 X10^3/uL; Basophil% 0.5 % (0-1); Eosinophil# 0.09 X10^3/uL; Eosinophils% 0.7 % (0-5); Hematocrit 38.5 % (37-47); Hemoglobin 12.4 g/dL (12.0-15.0); Lymphocyte % 21.3 % (19-41); Mean Corp Hgb Conc 32.2 g/dL (32-36); Mean Corpuscular Volume 86.9 fL (81-99); Mean Platelet Vol. 9.7 fl (6.2-12.0); Monocyte# 0.92 X10^3/uL; Monocyte% 6.8 % (0-10); NRBC Flagged by Analyzer 0 % (0-5); Neutrophil # 9.25 X10^3/uL (2.7-7.7); Neutrophil % 68.1 % (47-70); Platelet Count 236 K/mm3 (150-450); RBC Distribution Width CV 13.6 % (11.6-14.6); RBC Distribution Width SD 43.2 fl (35.1-43.9); Red Blood Count 4.43 M/mm3 (4.2-5.4); White Blood Count 13.6 K/mm3 (4.4-11.0)
[2019-05-15] MEDS: Lactated Ringers 1,000 ML 150 ML IV (11:13)
[2019-05-15] MEDS: Sodium Citrate/Citric Acid 30 ML UDC PO (12:24)
[2019-05-15] MEDS: Cefazolin 2 GM in 0.9% Normal Saline 100 ML IV (12:31)
[2019-05-15] MEDS: Oxytocin 30 units/NS 500 ml 30 UNITS/500 ML IV.SOLN 167 UNITS IV (13:35)
--- NOTE | 2019-05-15 15:24 | NURSING ---
Printed Ekg strip. Dr Schwartz called to evaluate strip. Dr Schwartz to room viewed strip. Monitor strip within normal limits Normal sinus rhythm noted.
--- NOTE | 2019-05-15 15:27 | NURSING ---
pericare done and binder on.
[2019-05-15] MEDS: Lactated Ringers 1,000 ML 100 ML IV (16:49)
--- NOTE | 2019-05-15 18:00 | NURSING ---
Mother had emesis after iv came out, iv was restarted and zofran given. Initialized on 05/15/19 18:37 - END OF NOTE
[2019-05-15] MEDS: Ondansetron 4 MG/2 ML Vial IV (18:03)
[2019-05-15] MEDS: 0.9% Saline Lock 10 ML Syringe IV ×2 (18:03→19:49)
--- NOTE | 2019-05-15 18:10 | NURSING ---
IV bumped as mother was moving in bed and came out
[2019-05-15] MEDS: Ketorolac 30 MG/ML Syringe IV (19:48)
--- NOTE | 2019-05-15 20:18 | HP.PCM_ITS ---
- Problem List (1) History of delivery Status: Acute Comment: previous for breech, plan TOLAC 79% likelihood of success. uptodate education given. consent signed (2) Status: Acute Qualifiers: Comment: PRR SILVANA 05/18/19 girl PC Mimi SPouse Gordon (3) Supervision of high risk , antepartum Status: Acute Comment: Declined NTD, genetic, carrier screening. anatomy scan reviewed. (4) Two vessel umbilical cord, antepartum Status: Acute Comment: recommend serial growth US [id number] after 28 weeks. 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: No Is patient in pain?: No Allergies No Known Allergies Allergy (Verified 05/12/19 08:05) Medications vitamin#30 30 mg iron-10 mg iron-folic acid 1 mg-omg3 capsule cap PO cap 11/05/18 [History Confirmed 05/12/19] Last Menstral Period: 08/11/18 Zika: Zika virus screening: Negative : No PFSH PFSH Surgical History delivery delivered (Acute ~2017) Family History Grandmother Cancer Hypertension Grandfather Diabetes Hypertension Social History (Updated 05/13/19 @ 05:23 by Britany Butts MD) Smoking Status: Never smoker alcohol intake: never substance use type: does not use caffeine: Yes what type of physical activity do you participate in: none seatbelt use: always do you feel safe at home: Yes additional social history: Gordon- Patient works at [employer] Pregancy History 3 Elective abortions Hx Para 1 Spontaneous abortions 1 Hx # Term Pregnancies Ectopic pregnancies Hx # Pregnancies Multiple births # of living children 1 Past Pregnancies Del. Date Name GA/Weeks Outcome Route Bth Weight Gen Labor Lgth Anesthesia Del Locatn Provider FOB Unknown 2016 Mimi 38 live - full term 8lbs 6oz Female spinal [facility] Nikki Delivery Date: On 11/05/18 @ 08:41 Antoinette Royily Breech HPI 39 WEEK OB/nst: Details: GRIFFIN SWANSON is a 28 year old who presents for routine OB visit. OB Visit SILVANA Calculator Estimated Delivery Date Method Current WG Current Estimate 05/18/19 LMP (Uncertain) 39w 2d Expected Delivery Route/Plan up to date education given and consent signed Specific Issue/Plans flu vaccine: no tdap vaccine: given rhogam: no LARC form signed: declines labor support person: Pat pain management: epidural cut cord/dad catch: yes : yes PP control planned: [] special requests: [] Initial Weight: 135 lb Date EGA Weight BP Urine Prot Glucose FHR FuHt Pres Mov CTX Dilation Effaced St Visit Note Effaced 11/19/18 14w 2d 137 lb (+2 lb) 116/60 Negative Negative 146 Walk in for headache earlier today that is responding to tylenol. Had numbness of fingers while driving has now resolved. No VB, LOF. 12/05/18 16w 4d 142 lb (+7 lb) 112/64 Negative Negative 140 16 no vb cramping declined all genetic screening 01/01/19 20w 3d 149 lb 6 oz (+14 lb 6 oz) 116/62 Negative Negative 156 NO VB, LOF. Doing well 01/30/19 24w 4d 159 lb 2 oz (+24 lb 2 oz) 132/70 Negative Negative 150 24 no vb lof good fm n oregular ctx 02/27/19 28w 4d 168 lb (+33 lb) 120/62 Negative Negative 152 28 Active absent No vB, LOF. 03/10/19 30w 1d 171 lb (+36 lb) 106/60 Negative Negative 140 31 Active no vb lof good fm no regular ctx 03/24/19 32w 1d 174 lb (+39 lb) 122/74 Negative Negative 140 32 Active absent no vb lof good fm no regular ctx. us next week. 03/31/19 33w 1d 176 lb (+41 lb) 116/60 Negative Negative 145 Active absent no vb lof good fm no regular ctx 04/07/19 34w 1d 177 lb (+42 lb) 120/72 Negative Negative 145 no vb lof goo fm no regualr ctx discussed 92 perecentile 04/14/19 35w 1d 179 lb (+44 lb) 104/68 Negative Negative 140 no vb lof good fm no regular ctx 04/28/19 37w 1d 182 lb (+47 lb) 112/72 Negative Negative 140 Active absent 0 no vb lof good fm no regular ctx. 05/05/19 38w 1d 183 lb (+48 lb) 120/72 Negative Negative 140 38 Active absent no vb lof 05/12/19 39w 1d 186 lb (+51 lb) 112/74 Negative Negative 140 39 Cephalic Active absent 0 no vb lof plan LTCS saturday Visit Notes Visit Date: 05/12/19 ??no vb lof plan LTCS saturday ??Britany Butts MD on 05/12/19 Visit Date: 05/05/19 ??no vb lof ??Britany Butts MD on 05/05/19 Visit Date: 04/28/19 ??no vb lof good fm no regular ctx. ??Britany Butts MD on 05/05/19 Visit Date: 04/14/19 ??no vb lof good fm no regular ctx ??Britany Butts MD on 04/15/19 Visit Date: 04/07/19 ??no vb lof goo fm no regualr ctx discussed 92 perecentile ??Britany Butts MD on 04/07/19 Visit Date: 03/31/19 ??no vb lof good fm no regular ctx ??Britany Butts MD on 03/31/19 Visit Date: 03/24/19 ??no vb lof good fm no regular ctx. us next week. ??Britany Butts MD on 03/24/19 Visit Date: 03/10/19 ??no vb lof good fm no regular ctx ??Britany Butts MD on 03/10/19 Visit Date: 02/27/19 ??No vB, LOF. ??RICKY Solares on 02/27/19 Visit Date: 01/30/19 ??no vb lof good fm n oregular ctx ??Britany Butts MD on 01/30/19 Visit Date: 01/01/19 ??NO VB, LOF. Doing well ??RICKY Solares on 01/01/19 Visit Date: 12/05/18 ??no vb cramping declined all genetic screening ??Britany Butts MD on 12/05/18 Visit Date: 11/19/18 ??Walk in for headache earlier today that is responding to tylenol. Had numbness of fingers while driving has now resolved. No VB, LOF. ??RICKY Solares on 11/19/18 ACOG First Trimester First Trimester: Second Trimester Second Trimester: Signs and Symptoms of Labor, Selecting a care provider, Reproductive Life Planning, Care Planning, Tobacco Cessation, Depression/Anxiety and Intimate Partner Violence Third Trimester Third Trimester: Pain Management Plans, Labor support person(s), Immediate Larc, Movement Monitoring and Feeding Yes ; discussed Trial of Labor after Counseling or discussed Circumcision preference Diagnostics Diagnostics Labs Hct 33.8 % (37-47) L 02/27/19 Hgb 11.3 g/dl (12.0-15.0) L 02/27/19 Obstetrics Ultrasound 04/30/19 Glucose 1 Hr 50 gm 98 mg/dL (70-140) 02/27/19 Diagnostics Glucose 1 Hr 50 gm 98 mg/dL (70-140) 02/27/19 Hgb 11.3 g/dl (12.0-15.0) L 02/27/19 Hct 33.8 % (37-47) L 02/27/19 Details: HIV: Urine Culture: Sequential Screen: NIPT Screen: ROS Const Reports system reviewed and no additional complaints, except as docu Card Reports system reviewed and no additional complaints, except as docu Resp Reports system reviewed and no additional complaints, except as docu GI Reports system reviewed and no additional complaints, except as docu, Reports nausea Reports system reviewed and no additional complaints, except as docu Musc Reports system reviewed and no additional complaints, except as docu Exam Const General: cooperative, healthy appearing, comfortable, anxious [facility] Head: normal to inspection Nose: external nose normal Face and sinus: normal facial exam Neck Neck: normal visual inspection, full ROM, no lymphadenopathy Thyroid: thyroid normal Chest Chest palpation & inspection: normal inspection of the chest Resp Effort & Inspection: normal respiratory effort GI Inspection: normal to inspection Palpation: soft, other (gravid uterus) Other: infant vertex and appropriate size for gestational age Other: Cervical Exam: Extrem General: pedal edema Office Procedures OB NST Non-Stress Test Indications for Monitoring: Yes other (2 vc) Heart Rate Baseline: 140 Heart Rate Variability: moderate Movement: Present Heart Rate Accelerations: Present Decelerations: Absent Contractions: Absent Impression: Yes Reactive Non-Stress Test Category 1 Results [id number] Office Urine Glucose Negative Last Edit by Cecilia Garza on 05/12/19 08:1 0 Office Urine Protein Negative Last Edit by Cecilia Garza on 05/12/19 08:1 0 Assessment & Plan Problems 1. Supervision of high risk , antepartum O09.90 2. Two vessel umbilical cord, antepartum O09.899 3. History of delivery Z98.891 4. 39 weeks gestation of Z3A.39 Plan movement and labor precautions reviewed. ACOG trimester education reviewed and updated. see problem list details for updated plan management information and see below for orders placed at this visit. GA appropriate handout given. plan RLTCS if no labor and unfavorable cervix by saturday Orders Orders: OB NST 05/12/19 O09.899 POC Urinalysis 2 Dip (Clinic) 05/12/19 Coding Level of Care Code OB Routine Diagnoses Supervision of high risk , antepartum O09.90 Two vessel umbilical cord, antepartum O09.899 History of delivery Z98.891 39 weeks gestation of Z3A.39 ??Weeks of gestation: 39 weeks Additional Codes Non-Stress Test (84837) UPDATE- I have seen the patient and performed any clinically relevant updates to the history and physical exam. Britany Butts MD
--- NOTE | 2019-05-15 20:24 | OP.PCM_ITS ---
Problem List (1) History of delivery Status: Acute Comment: previous for breech, plan TOLAC 79% likelihood of success. uptodate education given. consent signed (2) Status: Acute Qualifiers: Comment: PRR SILVANA 05/18/19 girl PC Mimi SPouse Gordon (3) Supervision of high risk , antepartum Status: Acute Comment: Declined NTD, genetic, carrier screening. anatomy scan reviewed. (4) Two vessel umbilical cord, antepartum Status: Acute Comment: recommend serial growth US [id number] after 28 weeks. 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 Spinal anesthesia was placed without difficulty. Sesay catheter was placed. The patient was placed in the dorsal supine position with leftward tilt. Patient was prepped and draped in the normal sterile fashion. Pfannenstiel skin incision was made with the scalpel and carried through to the underlying layer of fascia with the scalpel. Fascia was nicked in the midline and the incision extended laterally. The rectus bellies were dissected off superiorly and inferiorly with out complication both sharply and bluntly. The peritoneum was entered digitally. The incision was stretched and a low transverse uterine incision was made with the scalpel. The infant's head was delivered atraumatically followed by the anterior and posterior shoulders without complication the rest of the delivered. The cord was clamped and cut and the infant was handed off to awaiting nurse. The placenta was delivered spontaneously immediately following and was noted to be intact and have a three- vessel cord. The uterus was exteriorized cleared of all clots and debris, and the incision was closed in a double layer closure using #1 Monocryl. The ovaries and fallopian tubes were noted to be within normal limits. The uterus was returned to the maternal abdomen and gutters were cleared of all clots and debris. The peritoneum was closed with 3-0 Monocryl in a running fashion. Gloves were changed prior to fascial closure. Fascia was closed with 0 PDS in a running fashion. Subcutaneous tissue was copiously irrigated and the skin was closed with 3-0 Monocryl in a subcuticular fashion. Mepilex dressing was applied without complication. Patient was taken to recovery in stable condition. Amniotic Membrane Rupture Type: Spontaneous Amniotic Fluid Description: Clear Placenta Disposition: [facility] Specimen(s) sent to pathology: none Drain: Sesay to straight drain Cord Entanglement: Around neck x 1, loose Nuchal Cord Compression: Without compression Cord Vessel Description: 3 Vessels Esitmated Blood Loss (ml): 400 Gender: Female Delayed cord clamping: Yes Antibiotic Given: Ancef 2 grams IV x1 Pt instructed on risks of surgery: Bleeding, Anesthesia Risks, Infection Complications: None - Admit VTE Documentation VTE Present on Admission: No VTE Mechan Device Prophylaxis: SCD's
[2019-05-16] VITALS (10 sets, daily range): BP systolic 104–122; BP diastolic 57–70; PULSE 76–98; RESP 16–18; TEMP 36.3–36.8; O2SAT 94–99
[2019-05-16] MEDS: Ketorolac 30 MG/ML Syringe IV ×4 (01:49→19:21)
[2019-05-16] MEDS: 0.9% Saline Lock 10 ML Syringe IV ×4 (01:49→19:21)
[2019-05-16] MEDS: Lactated Ringers 1,000 ML 100 ML IV (02:39)
[2019-05-16 05:05] LABS: Hematocrit 34.8 % (37-47); Mean Corp Hgb Conc 31.6 g/dL (32-36); Mean Corpuscular Hgb 27.8 pg (27.0-32.0); Mean Corpuscular Volume 87.9 fL (81-99); Mean Platelet Vol. 9.1 fl (6.2-12.0); Platelet Count 182 K/mm3 (150-450); RBC Distribution Width CV 13.9 % (11.6-14.6); RBC Distribution Width SD 43.8 fl (35.1-43.9); Red Blood Count 3.96 M/mm3 (4.2-5.4); White Blood Count 12.7 K/mm3 (4.4-11.0)
--- NOTE | 2019-05-16 08:44 | PN.OBGYN_ITS ---
Subjective: doing well no complaints pain controlled no CP SOB N V ambulating well tolerating po lochia moderate, going well - Physical Exam General: Alert, Oriented x3 Vital Signs Temp Pulse Resp BP Pulse Ox 98.0 F 76 16 111/70 99 05/16/19 07:41 05/16/19 07:41 05/16/19 07:41 05/16/19 07:41 05/16/19 07:41 Oxygen Delivery Method Room Air Weight: 180 lb Body Mass Index (BMI) 28.1 Intake and Output for Last 24 Hours 05/14/19 05/15/19 05/16/19 23:59 23:59 23:59 Intake Total 3386.67 / 3386.67 1263.34 / 1263.34 Output Total 500 / 500 1100 / 1100 Balance 2886.67 / 2886.67 163.34 / 163.34 Laboratory Tests Past 24 Hrs 05/15/19 05/15/19 05/16/19 10:20 10:20 04:49 WBC 13.6 H 12.7 H RBC 4.43 3.96 L Hgb 12.4 11.0 L Hct 38.5 34.8 L MCV 86.9 87.9 MCH 28.0 27.8 MCHC 32.2 31.6 L RDW Std Deviation 43.2 43.8 RDW Coeff of Greg 13.6 13.9 Plt Count 236 182 MPV 9.7 9.1 Immature Gran % (Auto) 2.600 H Neut % (Auto) 68.1 Lymph % (Auto) 21.3 [place] % (Auto) 6.8 Eos % (Auto) 0.7 Baso % (Auto) 0.5 Absolute Neuts (auto) 9.3 H Absolute Lymphs (auto) 2.90 Nucleated RBC % 0 Blood Type A POSITIVE Antibody Screen NEGATIVE Medical Necessity - Tobacco Use Smoking Status: Never smoker Assessment/Plan All Active Problems (Last Reviewed 05/12/19 @ 08:06 by Cecilia Garza) Supervision of high risk , antepartum (Acute) Two vessel umbilical cord, antepartum (Acute) History of delivery (Acute) (Acute) Low lying placenta nos or without hemorrhage, second trimester (Resolved) Pharyngitis, acute (Resolved) Supervision of other normal (Resolved) Threatened (Resolved) Urinary tract infection (Resolved) s/p LTCS PPD # 1 1. routine post care 2. breast feeding- support given 3. rh positive 4. rubella immune
[2019-05-16] MEDS: Prenatal Vits Tablet 1 TABLET PO (09:02)
--- NOTE | 2019-05-16 14:53 | NURSING ---
Received report from Clem DELEON. I will assume care of patient at this time.
[2019-05-16] MEDS: oxyCODONE 5 MG Tablet PO (17:59)
[2019-05-17] MEDS: Ketorolac 30 MG/ML Syringe IV ×2 (00:41→07:13)
[2019-05-17] MEDS: 0.9% Saline Lock 10 ML Syringe IV ×2 (00:41→07:13)
[2019-05-17 01:21] VITALS: BP 118/72; PULSE 85; RESP 16; TEMP 36.7; O2SAT 97
[2019-05-17 07:25] VITALS: BP 119/62; PULSE 82; RESP 16; TEMP 36.2; O2SAT 98
--- NOTE | 2019-05-17 11:27 | PCM.PN.OB ---
Subjective: doing well no complaints pain controlled no CP SOB N V ambulating well tolerating po lochia moderate, going well - Physical Exam General: Alert, Oriented x3 Vital Signs Temp Pulse Resp BP Pulse Ox 97.2 F L 82 16 119/62 98 05/17/19 07:25 05/17/19 07:25 05/17/19 07:25 05/17/19 07:25 05/17/19 07:25 Oxygen Delivery Method Room Air Weight: 180 lb Body Mass Index (BMI) 28.1 Intake and Output for Last 24 Hours 05/15/19 05/16/19 05/17/19 23:59 23:59 23:59 Intake Total 3386.67 / 3386.67 1473.34 / 1473.34 480 / 480 Output Total 500 / 500 1825 / 1825 Balance 2886.67 / 2886.67 -351.66 / -351.66 480 / 480 Medical Necessity - Tobacco Use Smoking Status: Never smoker Assessment/Plan All Active Problems (Last Reviewed 05/12/19 @ 08:06 by Cecilia Garza) Supervision of high risk , antepartum (Acute) Two vessel umbilical cord, antepartum (Acute) History of delivery (Acute) (Acute) Low lying placenta nos or without hemorrhage, second trimester (Resolved) Pharyngitis, acute (Resolved) Supervision of other normal (Resolved) Threatened (Resolved) Urinary tract infection (Resolved) s/p LTCS PPD # 2 1. routine post care 2. breast feeding- support given 3. rh positive 4. rubella immune
--- NOTE | 2019-05-17 11:28 | DCINST_ITS ---
Discharge Diet: No Restrictions Discharge Activity: May Not Drive - for 2 weeks, May not drive while taking narcotic pain medications., May Shower, May Take a Tub Bath - in 7 days May resume sexual activity in: 4-6 weeks Lifting Restrictions: 20 pounds Additional Activity Instructions:: Nothing in the vagina for 4-6 weeks. You may return to work/school in 6 weeks. Call your doctor if your incision/area has: Continuous Slow Oozing, Sudden Increased Bleeding, Increased Pain/ Swelling, Increased Redness, Foul Smelling Discharge Call your doctor if you observe: Fever of 101 or Higher, Using more than one pad per hour - for 2 hours Suture Line Care: Avoid Pulling/Pushing, Avoid Pinching/Bending Cleanse incision/area with: Keep Dressing Clean & Dry Additional Instructions: If you experience any of the following, contact your healthcare provider. * Bleeding that soaks a pad every hour for 2 hours * Fever 100.4 or higher * Unrelieved incision or abdominal pain * Swelling, redness, discharge or bleeding from your incision or episiotomy site * Your incision begins to separate * Problems urinating (including inability to urinate or burning while urinating). * Visual changes * Severe headache * Flu-like symptoms * Pain or redness in one of both of your breasts * Pain, warmth, tenderness or swelling in your legs, especially the calf area * Frequent nausea and vomiting * Symptoms of depression or anxiety If you experience any of the following, call 911 or go to the nearest Emergency Room. * Chest pain * Problems breathing * Seizure activity * Partial or complete paralysis of a body part, slurred speech, weakness or drooping of the face, or a sudden inability to walk or hold your balance Allergies/Adverse Reactions: Allergies No Known Allergies Allergy (Verified 05/12/19 08:05) Medications to take at Discharge vitamin#30 30 mg iron-10 mg iron-folic acid 1 mg-omg3 capsule 1 cap PO DAILY cap 11/05/18 Follow-Up: Call to make an appointment with your doctor for an incision check in 1-2 weeks. You will also need a 6 week post- follow up appointment. Test results from this visit will be discussed in further detail at your follow- up appointment, if applicable. Please Follow Up With: Britany Butts MD - Call to make an appointment for an incision check in 1-2 [phone] When: You will need a post- check in 6 weeks. Primary Care Physician: Gustavo Hawley MD [Primary Care Provider] -
[2019-05-17 12:10] VITALS: BP 107/70; PULSE 91; RESP 18; TEMP 36.6
== END 2019-05-17 12:20 | disposition home or self-care (01) | DRG 788 ==
PROVIDERS: Admitting Provider Obstetrics & Gynecology; Family Provider Family Medicine; PCP Family Medicine; Referring Provider Obstetrics & Gynecology; Visit Provider Obstetrics & Gynecology
PROC: 10D00Z1 Extraction of Products of Conception, Low, Open Approach (ICD-10-PCS; CPT 59514; principal; 2019-05-15 12:15)
DX: O34.211 Maternal care for low transverse scar from previous cesarean delivery (principal); O69.89X0 Labor and delivery complicated by other cord complications, not applicable or unspecified; O69.81X0 Labor and delivery complicated by cord around neck, without compression, not applicable or unspecified; Z3A.39 39 weeks gestation of pregnancy; Z37.0 Single live birth; Z87.59 Personal history of other complications of pregnancy, childbirth and the puerperium
CPT/HCPCS: 85025; 85027; 86850; 86900; 86901; 99218; J7120; A4216; G0378; J2405

== ENCOUNTER → 2019-05-19 13:45 | Outpatient (CLI) | payer BC, SELFPAY ==
[2019-05-15 10:11] VITALS: BMI 28.1
--- NOTE | 2019-05-19 13:47 | RAD_ITS ---
STUDY: X-RAY CHEST REASON FOR EXAM: Female, 28 years old. Right shoulder pain and right lower anterior chest pain following vaginal delivery. TECHNIQUE: PA and lateral views of the chest. COMPARISON: None. FINDINGS: Pectus excavatum deformity. The lungs are clear and expanded. There is no demonstrated pleural abnormality. Normal size heart. Normal mediastinum and bob. Normal visualized pulmonary arteries. Normal visualized aortic arch and descending thoracic aorta. Normal visualized thoracic spine. Normal visualized ribs, clavicles, and shoulders. There is no demonstrated abnormality of the visualized soft tissue structures of the upper abdomen. RAD/Chest PA and Lateral IMPRESSION: Normal x-ray examination of the chest. Electronically Signed: Jsoe Vann, at 14:32 EDT , Service support ,
[2019-05-19 17:32] LABS: Absolute Lymphocyte Count 1.08 X10^3/uL (0.83-4.51); Absolute Neutrophil Count 4.9 X10^3/uL (2.0-7.7); Basophil# 0.04 X10^3/uL; Basophil% 0.6 % (0-1); Eosinophil# 0.13 X10^3/uL; Eosinophils% 1.9 % (0-5); Hematocrit 40.4 % (37-47); Hemoglobin 12.3 g/dL (12.0-15.0); Lymphocyte # 1.08 X10^3/ul (4.0); Lymphocyte % 16.2 % (19-41); Mean Corp Hgb Conc 30.4 g/dL (32-36); Mean Corpuscular Hgb 27.1 pg (27.0-32.0); Mean Platelet Vol. 9.3 fl (6.2-12.0); Monocyte# 0.43 X10^3/uL; Monocyte% 6.4 % (0-10); NRBC Flagged by Analyzer 0 % (0-5); Neutrophil # 4.88 X10^3/uL (2.7-7.7); Neutrophil % 73.3 % (47-70); Platelet Count 278 K/mm3 (150-450); RBC Distribution Width SD 45.1 fl (35.1-43.9); Red Blood Count 4.54 M/mm3 (4.2-5.4); White Blood Count 6.7 K/mm3 (4.4-11.0)
== END ==
PROVIDERS: Family Provider Family Medicine; PCP Family Medicine; Referring Provider Nurse Practitioner Women's Health; Visit Provider Nurse Practitioner Women's Health
DX: G89.18 Other acute postprocedural pain (principal)
CPT/HCPCS: 36415; 71046; 85025

== ENCOUNTER → 2020-06-28 18:14 | Outpatient (CLI) | payer OTHER, SELFPAY ==
[2019-10-14 08:46] VITALS: BMI 24.6
== END ==
PROVIDERS: Visit Provider Family Medicine
DX: R30.0 Dysuria (principal)
CPT/HCPCS: 87077; 87086; 87088; 87186

== ENCOUNTER 2020-12-07 13:37 | Outpatient (RCR) | payer OTHER, SELFPAY ==
[2019-10-14 08:46] VITALS: BMI 24.6
== END 2021-02-07 23:59 ==
LOC: IMMUN 13:37
PROVIDERS: PCP Family Medicine; Visit Provider Family Medicine
DX: Z23 Encounter for immunization (principal)
CPT/HCPCS: 0001A; 0002A; 91300

== ENCOUNTER → 2021-06-20 14:57 | Outpatient (CLI) | payer OTHER, SELFPAY ==
[2021-06-20 15:26] LABS: Bacteria 0 SEEN /hpf (None Seen); Mucous, Urine 0 SEEN /hpf (<or=2+); Red Blood Cells-Urine 0 SEEN /hpf (0-5); White Blood Cells 0 SEEN /hpf (0-5)
[2021-06-20 15:44] LABS: Color, Urine Yellow (Yellow); Glucose, Dipstick Normal (Normal); Ketone-Dipstick Negative (Negative); Leukocyte Esterase-Dipstick Negative /ul (Negative); Nitrite-Dipstick Negative (Negative); Occult Blood-Urine Negative /ul (Negative); Protein-Dipstick Negative (Negative); Urine Bilirubin Dipstick Negative (Negative); Urine Clarity Clear (Clear); Urine Urobilinogen Normal (Normal)
[2021-06-20 15:55] LABS: Squamous Epithelial Cells - UA 0-5 SEEN /hpf (5-10)
== END ==
PROVIDERS: PCP Family Medicine; Referring Provider Physician Assistant Surgical; Visit Provider Physician Assistant Surgical
DX: N39.0 Urinary tract infection, site not specified (principal)
CPT/HCPCS: 81001; 87086; 87088; 87186

== ENCOUNTER → 2021-08-23 17:08 | Outpatient (CLI) | payer OTHER, SELFPAY ==
--- NOTE | 2021-08-23 17:21 | MRI_ITS ---
STUDY: MRI BRAIN WITHOUT CONTRAST REASON FOR EXAM: Female, 30 years old. Migraine and blurred vision TECHNIQUE: Standardized multiplanar fat and water weighted pulse sequences were obtained. COMPARISON: None. FINDINGS: Brain parenchyma is intact without focal lesions, mass effect, extra parenchymal fluid collections, hydrocephalus or herniation. Major vascular flow structures are intact. Craniocervical junction is unremarkable. MRI/Brain without Contrast IMPRESSION: 1. Unremarkable brain MRI. Electronically Signed: Janna Lacy MD at 20:39 EST Tel , Service support ,
== END ==
LOC: MRI 17:11
PROVIDERS: PCP Family Medicine; Referring Provider Family Medicine; Visit Provider Family Medicine
DX: G43.909 Migraine, unspecified, not intractable, without status migrainosus (principal)
CPT/HCPCS: 70551

== ENCOUNTER 2021-11-28 07:25 | Outpatient (CLI) | payer OTHER, SELFPAY ==
[2021-12-05 14:03] LABS: HPV APTIMA, High Risk Positive (Negative)
== END 2021-11-28 23:59 | disposition home or self-care (01) ==
LOC: LABSPEC 11-29 07:25
PROVIDERS: PCP Family Medicine; Referring Provider Obstetrics & Gynecology; Visit Provider Obstetrics & Gynecology
DX: Z12.4 Encounter for screening for malignant neoplasm of cervix (principal); N76.0 Acute vaginitis
CPT/HCPCS: 87070; 87205; 87624; 88175; G0145

== ENCOUNTER → 2022-01-25 | Outpatient (CLI) | payer OTHER, SELFPAY ==
--- NOTE | 2022-01-25 | IMM_PTH ---
PATIENT: GRIFFIN SWANSON LOC: [facility] U#:[id number] AGE/SX: 31/F ROOM: RE01/25/[address]: Dr. Amelia Angel DO : 1990 BED: DIS: 01/25/2022 SPEC #: [id number] RECD: 01/26/22 11:08 STATUS: ANNE MASSIEL #: [id number] MARCK: 01/25/22 00:[address]: Amelia Angel DEPT: IMMUNOHISTOCHEMISTRY RECD BY: Shoshana Myrick ENTERED: 01/26/22 11:09 SP TYPE: IMMUNO OTHR DR: Dr. Alexandr Hood MD Tissues: Uterine cervix, NOS Procedures: p16 (initial) KI-67 (add) PHYSICIAN & INSTITUTION [facility] [phone] SPECIMEN INFORMATION: Tissue Source: B ? 4 o?clock Clinical Info: LGSIL, HPV positive Specimen Number: [id number] CPT code: 76873, 24173 METHODOLOGY: Deparaffinized sections of prefer/formalin-fixed tissue or PAP/DQ stained slides are incubated with monoclonal/polyclonal antibodies/oligonucleotide probes. Localization is made via biotin free immunoperoxidase method. Appropriate controls are performed and reacted as expected. Results on target cell population are indicated in the following table: RESULTS: ANTIBODY / CLONE RESULT Block B P16 (E6H4) positive, rare cells Ki-67 (30-9) positive, low These tests were developed and their performance characteristics determined by [facility]. They may not have been cleared or approved by the [place]. Food and Drug Administration. The FDA has determined that such clearance or approval is not necessary. The above immunohistochemical/dualISH markers are ordered and reviewed by the Pathologist. INTERPRETATION: B. Cervix at 4 o?clock, biopsy: Focal HPV change suspected. AM:nelia 01/30/2022
--- NOTE | 2022-01-25 10:30 | CER_PTH ---
PATIENT: GRIFFIN SWANSON [facility] U#:[id number] AGE/SX: 31/F ROOM: RE01/25/[address]: Dr. Amelia Angel DO : 1990 BED: DIS: 01/25/2022 SPEC #: [id number] RECD: 01/25/22 11:29 STATUS: ANNE ROLLELacy #: [id number] MARCK: 01/25/22 10:[address]: Amelia Angel DEPT: SURGICAL PATHOLOGY RECD BY: Rahel Negrete ENTERED: 01/25/22 13:23 SP TYPE: CERV OTHR DR: Dr. Alexandr Hood MD Tissues: A - Endocervical B - Uterine cervix, NOS Procedures: Surgery Specimen Level IV HEADER OPERATION: Colposcopy PRE-OP DIAGNOSIS: LGSIL, HPV positive TISSUE SUBMITTED: A ? Endocervical curettings, B ? 4 o?clock MICROSCOPIC DIAGNOSIS A. Endocervix, curettings: Rare benign glandular epithelial cells are present. B. Cervix at 4 o?clock, biopsy: HPV changes suspected. See comment. AM:nelia 01/26/2022 COMMENT B. Results from immunohistochemistry ([id number]) for surrogate HPV marker (p16) will be reported separately. Case has been reviewed in consultation with Dr. Anthony who concurs with the above diagnosis. IDC:[email or web address] MICROSCOPIC DESCRIPTION Slides are reviewed. GROSS DESCRIPTION A - Received in fixative is one container labeled with the patient's name and designated endocervical curettings. The specimen consists of a scant amount of soft tissue. The specimen is totally submitted for cell block preparation. B - Received in fixative is one container labeled with the patient's name and designated 4 o'clock. The specimen consists of one irregular fragment of light goldstein soft tissue that measures 0.3 x 0.3 x 0.1 cm. The specimen is totally submitted in one cassette. / ANTHONY:nelia 01/25/2022 TC: CPT: 41569 x2
== END | disposition home or self-care (01) ==
LOC: LABSPEC 11:44
PROVIDERS: PCP Family Medicine; Referring Provider Obstetrics & Gynecology; Visit Provider Obstetrics & Gynecology
DX: R87.622 Low grade squamous intraepithelial lesion on cytologic smear of vagina (LGSIL) (principal)
CPT/HCPCS: 88305; 88341; 88342

== ENCOUNTER → 2022-03-30 | Outpatient (CLI) | payer OTHER, SELFPAY ==
[2022-03-30 10:42] LABS: Mucous, Urine 0 SEEN /hpf (<or=2+); Red Blood Cells-Urine 0 SEEN /hpf (0-5)
[2022-03-30 10:45] LABS: Color, Urine Yellow (Yellow); Glucose, Dipstick Normal (Normal); Ketone-Dipstick Negative (Negative); Leukocyte Esterase-Dipstick 500 /ul (Negative); Nitrite-Dipstick Positive (Negative); Occult Blood-Urine 25 /ul (Negative); Protein-Dipstick 15 mg/dl (Negative); Specific Gravity, Urine 1.015 (1.002-1.030); Urine Bilirubin Dipstick Negative (Negative); Urine Clarity Cloudy (Clear); Urine Urobilinogen Normal (Normal)
[2022-03-30 10:59] LABS: White Blood Cells 50-100 SEEN /hpf (0-5)
[2022-03-30 11:00] LABS: Squamous Epithelial Cells - UA 5-10 SEEN /hpf (5-10)
[2022-03-30 11:01] LABS: Bacteria 1+ /hpf (None Seen)
== END | disposition home or self-care (01) ==
LOC: LABSPEC 10:24
PROVIDERS: PCP Family Medicine; Referring Provider Physician Assistant Surgical; Visit Provider Physician Assistant Surgical
DX: N39.0 Urinary tract infection, site not specified (principal)
CPT/HCPCS: 81001; 87086; 87186

== ENCOUNTER → 2022-11-29 | Outpatient (CLI) | payer OTHER, SELFPAY ==
[2022-12-07 15:20] LABS: HPV APTIMA, High Risk Negative (Negative)
== END | disposition home or self-care (01) ==
LOC: LABSPEC 16:00
PROVIDERS: Referring Provider Obstetrics & Gynecology; Visit Provider Obstetrics & Gynecology
DX: Z12.4 Encounter for screening for malignant neoplasm of cervix (principal)
CPT/HCPCS: 87624; 88175; G0145